=== PATIENT | male | born 1945 | race Caucasian/White ===

== ENCOUNTER → 2017-12-26 | Outpatient (CLI) | payer MEDICARE, OTHER ==
[~2017-12-26] MED LIST: CALCIUM 600600 M2; CARDIZEM LA240 MG PO; CLARITIN 1010 MG/TAB PO; COLACE 100100 MG/CAP PO; CRESTOR40 MG PO; EFFEXOR XR75 MG/CAP PO; EFFEXOR-XR150 MG PO; EPA FISH OIL1000 MG PO; FLOMAX 0.40.4 MG/CAP PO; GLUCOSAMINE SU750 M1 PO; LEVITRA5 MG; MULTIPLE VITAMI1 TA7 PO; PRILOSEC 20MG20 MG PO; PROBIOTIC FORMU1 CAP PO; SINGULAIR 110 MG/TAB PO; VITAMIN D1000 IU PO; ZANTAC 150MG T150 MG PO
== END ==
LOC: COL.RAD 09:09
DX: M19.011 Primary osteoarthritis, right shoulder (principal); M19.021 Primary osteoarthritis, right elbow
CPT/HCPCS: J3301; Q9967

== ENCOUNTER 2018-07-12 19:37 | Emergency (ER) | payer MEDICARE, OTHER ==
[~2018-07-12] VITALS: Ht 180.3 cm; Wt 121.8 kg
[2018-07-12 19:48] VITALS: TEMP 99.1
[2018-07-12] MEDS ORDERED: SINGULAIR 110 MG/TAB PO (20:10)
[2018-07-12] MEDS ORDERED: VENLAFAXINE225 MG PO (20:10)
[2018-07-12] MEDS ORDERED: FLOMAX 0.40.4 MG/CAP PO (20:11)
[2018-07-12] MEDS ORDERED: DEPRESSION MEDICINE (20:11)
[2018-07-12 20:55] LABS: BASO # 0.1 (0.0-0.2); BASO % 0.7 % (0.0-2.0); EOS # 0.1 (0.0-0.7); EOS % 1.3 % (0-4.0); GRAN % 72.7 % (42.2-75.2); HEMATOCRIT 41.5 % (42.0-52.0); HEMOGLOBIN 13.8 g/dl (13.5-18.0); LYMPH # 2.1 (1.2-3.4); LYMPH % 18.6 % (20.0-51.0); MEAN CELL VOLUME 91 fl (80.0-100.0); MEAN CORPUSCULAR HEMOGLOBIN 30 pg (27.0-31.0); MEAN CORPUSCULAR HGB CONC 33 g/dl (33.0-37.0); MEAN PLATELET VOLUME 9.4 fl (7.4-10.4); MONO # 0.7 (0.1-0.6); MONO % 6.5 % (1.7-9.3); PLATELET COUNT 268 K/mm3 (130-400); RED BLOOD COUNT 4.54 M/mm3 (4.20-5.60); REDCELL DISTRIBUTION WIDTH-CV 13.2 % (11.5-14.5)
[2018-07-12 21:01] LABS: ALANINE AMINOTRANSFERASE 21 U/L (21-72); ALBUMIN 3.8 gm/dL (3.5-5.0); ALKALINE PHOSPHATASE 74 U/L (50-136); ANION GAP 7 mmol/L (7-16); AST,SGOT 24 U/L (15-37); BILIRUBIN,TOTAL 0.5 mg/dL (0.0-1.0); BLOOD UREA NITROGEN 14 mg/dL (9-20); CALCIUM 9.2 mg/dL (8.4-10.2); CARBON DIOXIDE 25 mmol/L (22-30); CHLORIDE 106 mmol/L (98-107); GLUCOSE 103 mg/dL (74-106); POTASSIUM 4.2 mmol/L (3.4-5.0); SODIUM 138 mmol/L (137-145); TOTAL PROTEIN 6.7 gm/dL (6.4-8.2)
[2018-07-12 21:02] LABS: C-REACTIVE PROTEIN < 0.5 mg/dL (0.0-0.9)
[2018-07-12 22:02] LABS: COLLECTION METHOD CLEAN CATCH
[2018-07-12 22:08] LABS: MUCOUS Present /lpf; PH 5 (5-8); SQUAMOUS EPITHELIAL 0-2 /hpf; URINE APPEARANCE Clear; URINE BACTERIA None Seen /hpf; URINE BILIRUBIN Negative (NEGATIVE); URINE BLOOD Negative (NEGATIVE); URINE COLOR Yellow; URINE GLUCOSE Negative (NEGATIVE); URINE KETONE Negative (NEGATIVE); URINE LEUKOCYTE ESTERASE Negative (NEGATIVE); URINE NITRATE Negative (NEGATIVE); URINE PROTEIN(semi-quant) Negative (NEGATIVE); URINE RBC 0-2 /hpf
[2018-07-12 23:16] VITALS: BP 120/82; PULSE 106
== END 2018-07-12 23:19 | disposition home or self-care (01) ==
LOC: COL.ER 19:37
PROVIDERS: Emergency Medicine
DX: K62.89 Other specified diseases of anus and rectum (principal); I10 Essential (primary) hypertension; E78.00 Pure hypercholesterolemia, unspecified; F32.9 Major depressive disorder, single episode, unspecified; Z98.890 Other specified postprocedural states
CPT/HCPCS: J1170; J2405; J7030; Q9967

== ENCOUNTER → 2020-01-19 | Outpatient (CLI) | payer MEDICARE, OTHER ==
[~2020-01-19] MED LIST changes: +DEPRESSION MEDICINE; +VENLAFAXINE225 MG PO
== END ==
LOC: COL.RAD 12:49
DX: M25.571 Pain in right ankle and joints of right foot (principal)
CPT/HCPCS: J3301; Q9967